=== PATIENT | female | born 1965 | race Caucasian/White ===

== ENCOUNTER 2019-07-16 11:20 | Emergency (ER) | payer OTHER ==
[~2019-07-16] VITALS: Ht 177.8 cm; Wt 88.0 kg
[2019-07-16 11:32] VITALS: BP 136/91
== END 2019-07-16 13:14 | disposition home or self-care (01) ==
LOC: ER 11:21
DX: S60.212A Contusion of left wrist, initial encounter (principal); S60.211A Contusion of right wrist, initial encounter; S00.03XA Contusion of scalp, initial encounter; F10.99 Alcohol use, unspecified with unspecified alcohol-induced disorder; Z88.1 Allergy status to other antibiotic agents; W22.8XXA Striking against or struck by other objects, initial encounter; Y93.89 Activity, other specified; Y92.89 Other specified places as the place of occurrence of the external cause; Y99.8 Other external cause status; Y90.9 Presence of alcohol in blood, level not specified
CPT/HCPCS: 29125; 73090; 73110; 73140; 99283

== ENCOUNTER 2025-01-19 11:51 | Outpatient (CLI) | payer OTHER | END 2025-01-19 23:59 | disposition home or self-care (01) | LOC: LAB 11:51 | PROVIDERS: ATTEND Surgery | DX: N61.1 Abscess of the breast and nipple (principal) | CPT/HCPCS: 87070; 87075 ==